=== PATIENT | female | born 1995 ===

== ENCOUNTER 2021-08-02 01:11 | Inpatient (IN) | payer BC ==
[2021-08-02] MEDS ORDERED: Tranexamic Acid 1,000 MG in Sodium Chloride 0.9% 100 ML IV PRN (01:46)
[2021-08-02] MEDS ORDERED: Carboprost Tromethamine 250 MCG/1 ML Amp IM PRN (01:46)
[2021-08-02] MEDS ORDERED: Nalbuphine 10 MG/1 ML Vial IVPUSH PRN (01:46)
[2021-08-02] MEDS ORDERED: Terbutaline 1 MG/ML SDV SUBCUT PRN (01:46)
[2021-08-02] MEDS ORDERED: Misoprostol 200 MCG Tab PO PRN (01:46)
[2021-08-02] MEDS ORDERED: Lidocaine 1% 50 ML MDV INJECT PRN (01:46)
[2021-08-02] MEDS ORDERED: Misoprostol 25 MCG (1/4 of 100 MCG) Tab VAG PRN ×2 (01:46)
[2021-08-02] MEDS ORDERED: Butorphanol 1 MG/ML SDV IVPUSH PRN (01:46)
[2021-08-02] MEDS ORDERED: Sodium Chloride 0.9% 10 ML Syringe FLUSH PRN (01:46)
[2021-08-02] MEDS ORDERED: Water For Irrigation,Sterile 1,000 ML Container IRR PRN (01:46)
[2021-08-02] MEDS ORDERED: Sodium Chloride 0.9% 10 ML SDV IV PRN (01:46)
[2021-08-02] MEDS ORDERED: Methylergonovine 0.2 MG/1 ML Amp IM PRN (01:46)
[2021-08-02] MEDS ORDERED: Sodium Chloride 0.9% 2.5 ML Syringe FLUSH PRN (01:46)
[2021-08-02] MEDS ORDERED: Ondansetron 4 MG/2 ML SDV IVPUSH PRN (01:55)
[2021-08-02] MEDS ORDERED: Oxytocin/0.9 % Sodium Chloride 30 UNIT/500 ML BAG IV SCH ×2 (02:00)
[2021-08-02] MEDS: Lactated Ringers 1,000 ML IV SCH ×3 (10:08→17:54)
[2021-08-02] MEDS ORDERED: Ropivacaine HCl/PF 200 ML ONE (11:37)
--- NOTE | 2021-08-02 13:28 | PCM.PREANE ---
Preanesthetic Assessment - Procedure Proposed Procedure: Labor Epidural - Anesthesia/Transfusion/Family Hx Anesthesia History: Prior Anesthesia Without Reaction Type of Anesthesia Reaction: Other (see below) (PONV) Family History of Anesthesia Reaction: No Transfusion History: No Prior Transfusion(s) Other Type of Transfusion Reaction: vomitting - Review of Systems General: No Symptoms Pulmonary: No Symptoms Cardiovascular: No Symptoms Gastrointestinal: No Symptoms Neurological: No Symptoms Other: Reports: None - Physical Assessment NPO Status Date: 08/02/21 NPO Status Time: 00:00 Vital Signs: Last Vital Signs Temp 36.4 C 08/02/21 05:50 Pulse 98 08/02/21 05:50 Resp 17 08/02/21 05:50 BP 121/77 08/02/21 05:50 Pulse Ox 98 08/02/21 05:50 Height: 1.77 m Weight: 96.729 kg ASA Class: 2 Mental Status: Alert & Oriented x3 Airway Class: Mallampati = 2 Dentition: Reports: Normal Dentition Thyro-Mental Finger Breadths: 3 Mouth Opening Finger Breadths: 3 ROM/Head Extension: Full Lungs: Clear to Auscultation, Normal Respiratory Effort Cardiovascular: Regular Rate, Regular Rhythm - Lab Values: Laboratory Last Values WBC 9.28 K/uL (4.0-11.0) 08/02/21 01:35 RBC 3.15 M/uL (4.30-5.90) L 08/02/21 01:35 Hgb 9.9 g/dL (12.0-16.0) L 08/02/21 01:35 Hct 30.5 % (36.0-46.0) L 08/02/21 01:35 MCV 96.8 fL (80.0-98.0) 08/02/21 01:35 MCH 31.4 pg (27.0-32.0) 08/02/21 01:35 MCHC 32.5 g/dL (31.0-37.0) 08/02/21 01:35 RDW Std Deviation 44.5 fl (28.0-62.0) 08/02/21 01:35 RDW Coeff of Jensen 14 % (11.0-15.0) 08/02/21 01:35 Plt Count 267 K/uL (150-400) 08/02/21 01:35 MPV 11.80 fL (7.40-12.00) 08/02/21 01:35 SARS-CoV-2 RNA (GUY) NEGATIVE (NEGATIVE) 08/02/21 01:40 Blood Type O POSITIVE 08/02/21 01:35 Antibody Screen NEGATIVE 08/02/21 01:35 - Allergies Allergies/Adverse Reactions: Allergies Allergy/AdvReac Type Severity Reaction Status Date / Time amoxicillin Allergy Hives Verified 07/10/21 17:55 Sulfa (Sulfonamide Allergy Hives Verified 07/10/21 17:56 Antibiotics) - Blood Blood Available: No Product(s) Available: None - Anesthesia Plan Pre-Op Medication Ordered: None - Acknowledgements Anesthesia Type Planned: Epidural Pt an Appropriate Candidate for the Planned Anesthesia: Yes Alternatives and Risks of Anesthesia Discussed w Pt/Guardian: Yes Pt/Guardian Understands and Agrees with Anesthesia Plan: Yes PreAnesthesia Questionnaire - Past Health History Medical/Surgical History: Denies Medical/Surgical History HEENT History: Reports: None Cardiovascular History: Reports: None Respiratory History: Reports: None Gastrointestinal History: Reports: None Genitourinary History: Reports: Other (See Below) Other Genitourinary History: kidney stones lithotripsy RECREATION PROGRAM COORDINATOR History: Reports: Endometriosis, , Other (See Below) Other OB/BYN History: ovarian cysts Musculoskeletal History: Reports: None Neurological History: Reports: None Psychiatric History: Reports: Anxiety Endocrine/Metabolic History: Reports: None Hematologic History: Reports: None Immunologic History: Reports: None Oncologic (Cancer) History: Reports: None Dermatologic History: Reports: None, Other (See Below) Other Dermatologic History: adult acne - Infectious Disease History Infectious Disease History: Reports: None - Past Surgical History Head Surgeries/Procedures: Reports: None - SUBSTANCE USE Tobacco Use Status *Q: Never Tobacco User Second Hand Smoke Exposure: No Recreational Drug Use History: No - CURRENT (IN HOUSE) MEDS Current Meds: Current Medications Butorphanol Tartrate (Butorphanol 1 Mg/Ml Sdv) 1 mg IVPUSH Q1H PRN PRN Reason: Pain (severe 7-10) Carboprost Tromethamine (Carboprost Tromethamine 250 Mcg/1 Ml Amp) 250 mcg IM ASDIRECTED PRN PRN Reason: Post Hemorrhage Oxytocin/Sodium Chloride (Oxytocin 30 Unit In Ns 0.9% 500 Ml Premix) 30 unit in 500 mls @ 999 mls/hr IV TITRATE LALAN Tranexamic Acid 1,000 mg/ (Sodium Chloride) 110 mls @ 660 mls/hr IV ONETIME PRN PRN Reason: Bleeding Oxytocin/Sodium Chloride (Oxytocin 30 Unit In Ns 0.9% 500 Ml Premix) 30 unit in 500 mls @ 2 mls/hr IV TITRATE ALLAN; Protocol Last Titration: 08/02/21 12:26 Dose: 4 munits/min, 4 mls/hr Documented by: Lactated Ringer's (Ringers, Lactated) 1,000 mls @ 150 mls/hr IV ASDIRECTED ALLAN Last Admin: 08/02/21 11:10 Dose: 150 mls/hr Documented by: Lidocaine HCl (Lidocaine 1% 50 Ml Mdv) 50 ml INJECT ONETIME PRN PRN Reason: Laceration repair Methylergonovine Maleate (Methylergonovine 0.2 Mg/1 Ml Amp) 0.2 mg IM ASDIRECTED PRN PRN Reason: Post Hemorrhage Misoprostol (Misoprostol 200 Mcg Tab) 200 mcg PO ONETIME PRN PRN Reason: Post Hemorrhage Misoprostol (Misoprostol 25 Mcg (1/4 Of 100 Mcg) Tab) 25 mcg VAG ONETIME PRN PRN Reason: Cervical Ripening Misoprostol (Misoprostol 25 Mcg (1/4 Of 100 Mcg) Tab) 25 mcg VAG Q4H PRN PRN Reason: Cervical Ripening Nalbuphine HCl (Nalbuphine 10 Mg/1 Ml Vial) 10 mg IVPUSH Q1H PRN PRN Reason: Pain (severe 7-10) Ondansetron HCl (Ondansetron 4 Mg/2 Ml Sdv) 4 mg IVPUSH Q4H PRN PRN Reason: Nausea/Vomiting Sodium Chloride (Sodium Chloride 0.9% 10 Ml Syringe) 10 ml FLUSH ASDIRECTED PRN PRN Reason: Keep Vein Open Sodium Chloride (Sodium Chloride 0.9% 2.5 Ml Syringe) 2.5 ml FLUSH ASDIRECTED PRN PRN Reason: Keep Vein Open Sodium Chloride (Sodium Chloride 0.9% 10 Ml Sdv) 10 ml IV ASDIRECTED PRN PRN Reason: IV Use Sterile Water (Water For Irrigation,Sterile 1,000 Ml Container) 1,000 ml IRR ASDIRECTED PRN PRN Reason: delivery Terbutaline Sulfate (Terbutaline 1 Mg/Ml Sdv) 0.25 mg SUBCUT ASDIRECTED PRN PRN Reason: Tacysystole Discontinued Medications Ropivacaine (Naropin 0.2%) Confirm Administered Dose 200 mls @ as directed .ROUTE .[facility] ONE Stop: 08/02/21 11:38 Last Admin: 08/02/21 12:43 Dose: Not Given Documented by:
--- NOTE | 2021-08-02 13:33 | PCM.SN.2 ---
Time Documentation - Pre-Procedure Checklist Attending Provider Aware: Yes Chart Reviewed: Yes Consent Signed: Yes Labs Reviewed: Yes VS/FHR Reviewed: Yes Patient Identification Confirmation Method: Reports: Chart Visual, Verbal Patient Pt an Appropriate Candidate for the Planned Anesthesia: Yes Alternatives and Risks of Anesthesia Discussed w Pt/Guardian: Yes - Procedure Procedure Start Date: 08/02/21 Procedure Start Time: 11:[address]: Reports: Blood Pressure, Heart Rate, SPO2 Functional IV: Yes Safety Measures: Reports: Patient Identified, Procedure Verified, Site Verified, Procedure Time Out Patient Position: Reports: Sitting Prep: Reports: Betadine x3 Local Anesthetic: Reports: Intradermal Wheal w Lidocaine 1% Regional Placement Level: Reports: L3-4 Needle: Reports: 17 g Touhy Approach: Reports: Midline Technique: Reports: LEXIS Glass Syringe LEXIS Needle Depth (cm): 6 cm Parasthesia: Reports: None Fluid Obtained: Reports: None Catheter Depth at Skin (cm): 15 cm Test Dose Time: 11:33 Test Dose Medication: Reports: Lidocaine 1.5% w Epinephrine 1:200,000 Test Dose Response: Reports: Negative Loading Dose Time: 11:43 Loading Dose Medication: 0.2% ropivicaine Loading Dose Patient Position: supine Continuous Infusion Start Time: 11:45 Continuous Infusion Medication: 0.2% ropivicaine Continuous Infusion Rate: 12 Continuous Infusion PCS Bolus Option: 4 Continuous Infusion Lockout Dose (cc/hr): 20 Patient Position Post Placement: Reports: Semi-fowlers/ESME Post-procedure Pain Level: 0 Level Achieved: t4 VS and FHR Monitored in Unit Post Placement: Yes Procedure End Date: 08/02/21 Procedure End Time: 11:45 Procedure Comment: Sterile technique used throughout.
--- NOTE | 2021-08-02 13:35 | PCM.POSTAN ---
POST ANESTHESIA ASSESSMENT - MENTAL STATUS Mental Status: Alert, Oriented - VITAL SIGNS Vital Signs: Last Vital Signs Temp 36.4 C 08/02/21 05:50 Pulse 98 08/02/21 05:50 Resp 17 08/02/21 05:50 BP 121/77 08/02/21 05:50 Pulse Ox 98 08/02/21 05:50 - RESPIRATORY Respiratory Status: Respiratory Rate WNL, Airway Patent, O2 Saturation Stable - CARDIOVASCULAR CV Status: Pulse Rate WNL, Blood Pressure Stable - GASTROINTESTINAL GI Status: No Symptoms - POST OP HYDRATION Hydration Status: Adequate & Stable (VSS and pt comfortable)
[2021-08-02] MEDS ORDERED: Ibuprofen 800 MG Tab PO PRN (22:03)
[2021-08-02] MEDS ORDERED: Bisacodyl 10 MG Supp RECTAL PRN (22:03)
[2021-08-02] MEDS ORDERED: Witch Hazel Medicated Pads 40/Jar TOP PRN (22:03)
[2021-08-02] MEDS ORDERED: Lanolin 100% Cream 7 GM Tube TOP PRN (22:03)
[2021-08-02] MEDS ORDERED: Benzocaine/Menthol 20%-0.5% Spray 78 GM Cannister TOP PRN (22:03)
[2021-08-02] MEDS ORDERED: oxyCODONE 5 MG Tab PO PRN (22:03)
[2021-08-02] MEDS ORDERED: Ibuprofen 400 MG Tab PO PRN (22:03)
[2021-08-02] MEDS ORDERED: Acetaminophen 500 MG Tab PO PRN (22:03)
--- NOTE | 2021-08-02 22:13 | PCM.DEL ---
L & D Note - General Info Date of Service: 08/02/21 Mother's Due Date: 08/23/21 - Delivery Note Labor: Augmented by Oxytocin Cervical Ripening Method: Misoprostil (x2 doses) Delivery Outcome: Livebirth Delivery Method: Spontaneous Vaginal Delivery-Single Delivery Mode: Spontaneous Presentation: Right Occiput Anterior (SYDNIE) Nuchal Cord: None Anesthesia Type: Epidural Amniotic Fluid Description: Clear Episiotomy Type: None Laceration: 2nd Degree Suture type: Vicryl Suture size: 2-0 Placenta: Intact, Spontaneous Cord: 3 Vessels Estimated Blood Loss: 150 Resuscitation Needed: No : Bulb Syringe, Stimulated, Warmed Score 1 min: 7 Score 5 min: 8 Delivery Comments (Free Text/Narrative):: Dictation #[id number] - General Info Date of Service: 08/02/21 - Patient Data Vitals - Most Recent: Last Vital Signs Temp 97.6 F 08/02/21 05:50 Pulse 98 08/02/21 05:50 Resp 17 08/02/21 05:50 BP 121/77 08/02/21 05:50 Pulse Ox 98 08/02/21 05:50 Weight - Most Recent: 213 lb 4 oz I&O - Last 24 Hours: Intake & Output 08/02/21 08/02/21 08/02/21 06:59 14:59 22:59 Intake Total 2022 Output Total 675 Balance 1348 Lab Results Last 24 Hours: Laboratory Results - last 24 hr 08/02/21 08/02/21 08/02/21 Range/Units 01:35 01:35 01:40 WBC 9.28 (4.0-11.0) K/uL RBC 3.15 L (4.30-5.90) M/uL Hgb 9.9 L (12.0-16.0) g/dL Hct 30.5 L (36.0-46.0) % MCV 96.8 (80.0-98.0) fL MCH 31.4 (27.0-32.0) pg MCHC 32.5 (31.0-37.0) g/dL RDW Std Deviation 44.5 (28.0-62.0) fl RDW Coeff of Jensen 14 (11.0-15.0) % Plt Count 267 (150-400) K/uL MPV 11.80 (7.40-12.00) fL SARS-CoV-2 RNA (GUY) NEGATIVE (NEGATIVE) Blood Type O POSITIVE Antibody Screen NEGATIVE Med Orders - Current: Current Medications Butorphanol Tartrate (Butorphanol 1 Mg/Ml Sdv) 1 mg IVPUSH Q1H PRN PRN Reason: Pain (severe 7-10) Carboprost Tromethamine (Carboprost Tromethamine 250 Mcg/1 Ml Amp) 250 mcg IM ASDIRECTED PRN PRN Reason: Post Hemorrhage Oxytocin/Sodium Chloride (Oxytocin 30 Unit In Ns 0.9% 500 Ml Premix) 30 unit in 500 mls @ 999 mls/hr IV TITRATE ALLAN Tranexamic Acid 1,000 mg/ (Sodium Chloride) 110 mls @ 660 mls/hr IV ONETIME PRN PRN Reason: Bleeding Oxytocin/Sodium Chloride (Oxytocin 30 Unit In Ns 0.9% 500 Ml Premix) 30 unit in 500 mls @ 2 mls/hr IV TITRATE ALLAN; Protocol Last Titration: 08/02/21 13:38 Dose: 6 munits/min, 6 mls/hr Documented by: Lactated Ringer's (Ringers, Lactated) 1,000 mls @ 150 mls/hr IV ASDIRECTED ALLAN Last Admin: 08/02/21 17:54 Dose: 150 mls/hr Documented by: Lidocaine HCl (Lidocaine 1% 50 Ml Mdv) 50 ml INJECT ONETIME PRN PRN Reason: Laceration repair Methylergonovine Maleate (Methylergonovine 0.2 Mg/1 Ml Amp) 0.2 mg IM ASDIRECTED PRN PRN Reason: Post Hemorrhage Misoprostol (Misoprostol 200 Mcg Tab) 200 mcg PO ONETIME PRN PRN Reason: Post Hemorrhage Misoprostol (Misoprostol 25 Mcg (1/4 Of 100 Mcg) Tab) 25 mcg VAG ONETIME PRN PRN Reason: Cervical Ripening Misoprostol (Misoprostol 25 Mcg (1/4 Of 100 Mcg) Tab) 25 mcg VAG Q4H PRN PRN Reason: Cervical Ripening Nalbuphine HCl (Nalbuphine 10 Mg/1 Ml Vial) 10 mg IVPUSH Q1H PRN PRN Reason: Pain (severe 7-10) Ondansetron HCl (Ondansetron 4 Mg/2 Ml Sdv) 4 mg IVPUSH Q4H PRN PRN Reason: Nausea/Vomiting Sodium Chloride (Sodium Chloride 0.9% 10 Ml Syringe) 10 ml FLUSH ASDIRECTED PRN PRN Reason: Keep Vein Open Sodium Chloride (Sodium Chloride 0.9% 2.5 Ml Syringe) 2.5 ml FLUSH ASDIRECTED PRN PRN Reason: Keep Vein Open Sodium Chloride (Sodium Chloride 0.9% 10 Ml Sdv) 10 ml IV ASDIRECTED PRN PRN Reason: IV Use Sterile Water (Water For Irrigation,Sterile 1,000 Ml Container) 1,000 ml IRR ASDIRECTED PRN PRN Reason: delivery Terbutaline Sulfate (Terbutaline 1 Mg/Ml Sdv) 0.25 mg SUBCUT ASDIRECTED PRN PRN Reason: Tacysystole Discontinued Medications Ropivacaine (Naropin 0.2%) Confirm Administered Dose 200 mls @ as directed .ROUTE .[facility]-MED ONE Stop: 08/02/21 11:38 Last Admin: 08/02/21 12:43 Dose: Not Given Documented by: - Exam Urinary Catheter Total Time: 0Days 1Hours - Problem List Review Problem List Initiated/Reviewed/Updated: Yes - My Orders Last 24 Hours: My Active Orders 08/02/21 01:35 RPR (SYPHILIS SERO) W/ RFLX [REF] Stat 08/02/21 01:46 Butorphanol [Stadol] 1 mg IVPUSH Q1H PRN Carboprost Tromethamine [Hemabate DS] 250 mcg IM ASDIRECTED PRN Lidocaine 1% [Xylocaine 1%] 50 ml INJECT ONETIME PRN Methylergonovine [Methergine] 0.2 mg IM ASDIRECTED PRN Nalbuphine [Nubain] 10 mg IVPUSH Q1H PRN Sodium Chloride 0.9% [Normal Saline] 10 ml IV ASDIRECTED PRN Sodium Chloride 0.9% [Saline Flush] 10 ml FLUSH ASDIRECTED PRN Sodium Chloride 0.9% [Saline Flush] 2.5 ml FLUSH ASDIRECTED PRN Terbutaline [Brethine] 0.25 mg SUBCUT ASDIRECTED PRN Tranexamic Acid [Cyklokapron] 1,000 mg Sodium Chloride 0.9% [Normal Saline] 100 ml IV ONETIME Water For Irrigation,Sterile [Sterile Water for Irrigation] 1,000 ml IRR ASDIRECTED PRN miSOPROStoL [Cytotec] 200 mcg PO ONETIME PRN miSOPROStoL [Cytotec] 25 mcg VAG ONETIME PRN miSOPROStoL [Cytotec] 25 mcg VAG Q4H PRN Resuscitation Status Routine 08/02/21 01:47 Patient Status [ADT] Routine Bedrest Bathroom Privileges [RC] ASDIRECTED Communication Order [RC] ASDIRECTED Communication Order [RC] ASDIRECTED Communication Order [RC] ASDIRECTED May Shower [RC] ASDIRECTED Notify Provider [RC] PRN Notify Provider [RC] PRN Notify Provider [RC] PRN Notify Provider [RC] STAT Oxygen Therapy [RC] ASDIRECTED Up ad Caron [RC] ASDIRECTED Vital Signs [RC] PER UNIT ROUTINE Vital Signs [RC] PER UNIT ROUTINE Scalp Electrode [WOMSER] Per Unit Routine Peripheral IV Insertion Adult [OM.PC] Routine 08/02/21 01:55 Ondansetron [Zofran] 4 mg IVPUSH Q4H PRN 08/02/21 02:00 Lactated Ringers [Ringers, Lactated] 1,000 ml IV ASDIRECTED Oxytocin/0.9 % Sodium Chloride [Oxytocin 30 Unit in NS 0.9% 500 ML Premix] 30 unit in 500 ml IV TITRATE Oxytocin/0.9 % Sodium Chloride [Oxytocin 30 Unit in NS 0.9% 500 ML Premix] 30 unit in 500 ml IV TITRATE Medication Administration Instruction [OM.PC] Q3H 08/02/21 22:03 Patient Status [ADT] Routine May Shower [RC] ASDIRECTED Up ad Caron [RC] ASDIRECTED Vital Signs [RC] PER UNIT ROUTINE Acetaminophen [Tylenol Extra Strength] 1,000 mg PO Q4H PRN Acetaminophen [Tylenol Extra Strength] 500 mg PO Q4H PRN Benzocaine/Menthol [Dermoplast Pain Relief 20%-0.5% [place]] 78 gm TOP ASDIRECTED PRN Docusate Sodium [Colace] 100 mg PO Q12H PRN Ibuprofen [Motrin] 400 mg PO Q4H PRN Ibuprofen [Motrin] 800 mg PO Q6H PRN Lanolin [Lansinoh HPA] See Dose Instructions TOP ASDIRECTED PRN bisacodyL [Dulcolax] 10 mg RECTAL ONETIME PRN oxyCODONE 5 mg PO Q2H PRN aaron Camejo [Tucks] 1 pad TOP ASDIRECTED PRN Assess Lochia [WOMSER] Per Unit Routine Assess Uterine Involution [WOMSER] Per Unit Routine Peripheral IV Discontinue [OM.PC] Routine 08/03/21 05:11 HEMOGLOBIN/HEMATOCRIT,HH [HEME] Timed - Assessment Assessment:: 26 year old female with gestational hypertension s/p - Plan Plan:: Routine cares * Rh positive, rubella immune, GBS negative * Regular diet as tolerated * PO pain medications ordered PRN * Encourage ambulation and fluid intake when able * Plans to breastfeed, nursing assistance PRN Gestational hypertension * BPs normotensive to mild range throughout labor * Asymptomatic * Preeclampsia labs have been within normal limits Dispo: stable. Admit to floor and anticipate routine course
--- NOTE | 2021-08-03 00:06 | OR ---
SURGEON: TORI ORANTES MD DATE OF PROCEDURE: 08/02/2021 PREOPERATIVE DIAGNOSES: 1. Term intrauterine gestation at 37 weeks and 0 days. 2. Gestational hypertension. POSTOPERATIVE DIAGNOSES: 1. Term intrauterine gestation at 37 weeks and 0 days. 2. Gestational hypertension. PROCEDURE PERFORMED: Normal spontaneous vaginal delivery, repair of second-degree perineal laceration. PRIMARY SURGEON: Tori Orantes MD. ANESTHESIOLOGIST: Nazario Deluca CRNA. ANESTHESIA: Epidural. INDICATION FOR PROCEDURE: Patient is a 26-year-old 1, para 0, at 37 weeks and 0 days gestation with complicated by gestational hypertension. She was admitted to Labor and Delivery in [facility] of 08/02/2021, for induction of labor. She received 2 doses of vaginal Cytotec. She noted spontaneous rupture of membranes with clear fluid at approximately 0600. She received an epidural for pain management around 11 a.m. and Pitocin was started shortly thereafter. Labor progressed spontaneously. An intrauterine pressure catheter was inserted at approximately 1645 due to difficulty tracing contractions abdominally. At approximately 20:00, I was notified that the patient was completely dilated and instructed the patient to labor down as she was only at 1+ station. DESCRIPTION OF PROCEDURE: At approximately 21:00, I entered the room and patient was noted to be completely dilated and +2 station. The patient was then placed into dorsal lithotomy position and she pushed with contractions for approximately 40 minutes with good descent. head delivered in occiput anterior position, restitute ROT. Anterior shoulder delivered easily. No nuchal cord was noted. Posterior shoulder and remaining body was then delivered. The baby was placed on maternal chest and evaluated by the awaiting nursing staff. The baby was pink and crying vigorously and moving all extremities immediately after the delivery. After the cord was no longer pulsating, the cord was clamped and cut. Arterial, venous, and cord blood gases were then obtained and the placenta then was expressed without difficulty. Examination of the cervix, vaginal gomez, and perineum was then performed and a small second-degree perineal laceration was noted. This was repaired in the usual fashion with 2-0 Vicryl. Fundal massage was then performed and a small amount of vaginal bleeding was noted. The patient tolerated the procedure well. Sponge, lap, needle count were correct x2. The patient and recovering in delivery room at this time. MARORAC / MODL /[id number] AZALIA
[2021-08-03] MEDS: Acetaminophen 500 MG Tab PO PRN ×2 (06:16→16:27)
[2021-08-03] MEDS: Docusate Sodium 100 MG Cap PO PRN (08:26)
--- NOTE | 2021-08-03 08:42 | PCM.PNPP ---
- General Info Date of Service: 08/03/21 Admission Dx/Problem (Free Text): Gestational hypertension Subjective Update: Resting comfortably in bed during rounds. Has showered and ambulated about her room. Pain well controlled. Tolerating regular diet. Voiding independently. Bleeding has decreased. , using nipple shield with good results. - General Info Date of Service: 08/03/21 - Patient Data Vital Signs - Most Recent: Last Vital Signs Temp 97.5 F 08/03/21 04:00 Pulse 87 08/03/21 04:00 Resp 16 08/03/21 04:00 BP 135/87 08/03/21 04:00 Pulse Ox 95 08/03/21 04:00 Weight - Most Recent: 213 lb 4 oz I&O - Last 24 Hours: Intake & Output 08/02/21 08/03/21 08/03/21 22:59 06:59 14:59 Intake Total 2023 Output Total 675 Balance 1348 Lab Results - Last 24 Hours: Laboratory Results - last 24 hr 08/02/21 08/03/21 Range/Units 21:44 05:40 Hgb 10.4 L (12.0-16.0) g/dL Hct 32.0 L (36.0-46.0) % Cord ABG pH 7.176 L (7.18-7.38) Cord ABG Base Excess -12 L (-10--2) Cord VBG pH 7.226 L (7.25-7.45) Cord VBG Base Excess -10 (-10--2) Med Orders - Current: Current Medications Acetaminophen (Acetaminophen 500 Mg Tab) 500 mg PO Q4H PRN PRN Reason: Pain (mild 1-3) Acetaminophen (Acetaminophen 500 Mg Tab) 1,000 mg PO Q4H PRN PRN Reason: Pain (mild 1-3) Last Admin: 08/03/21 06:16 Dose: 1,000 mg Documented by: Benzocaine/Menthol (Benzocaine/Menthol 20%-0.5% [place] 78 Gm Cannister) 78 gm TOP ASDIRECTED PRN PRN Reason: Perineal Comfort Measure Last Admin: 08/03/21 00:23 Dose: 1 canister Documented by: Bisacodyl (Bisacodyl 10 Mg Supp) 10 mg RECTAL ONETIME PRN PRN Reason: Constipation Butorphanol Tartrate (Butorphanol 1 Mg/Ml Sdv) 1 mg IVPUSH Q1H PRN PRN Reason: Pain (severe 7-10) Carboprost Tromethamine (Carboprost Tromethamine 250 Mcg/1 Ml Amp) 250 mcg IM ASDIRECTED PRN PRN Reason: Post Hemorrhage Docusate Sodium (Docusate Sodium 100 Mg Cap) 100 mg PO Q12H PRN PRN Reason: Constipation Last Admin: 08/03/21 08:26 Dose: 100 mg Documented by: Emollient Ointment (Lanolin 100% Cream 7 Gm Tube) 0 gm TOP ASDIRECTED PRN PRN Reason: Sore Nipples Oxytocin/Sodium Chloride (Oxytocin 30 Unit In Ns 0.9% 500 Ml Premix) 30 unit in 500 mls @ 999 mls/hr IV TITRATE ALLAN Tranexamic Acid 1,000 mg/ (Sodium Chloride) 110 mls @ 660 mls/hr IV ONETIME PRN PRN Reason: Bleeding Oxytocin/Sodium Chloride (Oxytocin 30 Unit In Ns 0.9% 500 Ml Premix) 30 unit in 500 mls @ 2 mls/hr IV TITRATE ALLAN; Protocol Last Titration: 08/02/21 13:38 Dose: 6 munits/min, 6 mls/hr Documented by: Lactated Ringer's (Ringers, Lactated) 1,000 mls @ 150 mls/hr IV ASDIRECTED ALLAN Last Admin: 08/02/21 17:54 Dose: 150 mls/hr Documented by: Ibuprofen (Ibuprofen 400 Mg Tab) 400 mg PO Q4H PRN PRN Reason: Pain (mild 1-3) Ibuprofen (Ibuprofen 800 Mg Tab) 800 mg PO Q6H PRN PRN Reason: Cramping Last Admin: 08/03/21 06:16 Dose: 800 mg Documented by: Lidocaine HCl (Lidocaine 1% 50 Ml Mdv) 50 ml INJECT ONETIME PRN PRN Reason: Laceration repair Methylergonovine Maleate (Methylergonovine 0.2 Mg/1 Ml Amp) 0.2 mg IM ASDIRECTED PRN PRN Reason: Post Hemorrhage Misoprostol (Misoprostol 200 Mcg Tab) 200 mcg PO ONETIME PRN PRN Reason: Post Hemorrhage Misoprostol (Misoprostol 25 Mcg (1/4 Of 100 Mcg) Tab) 25 mcg VAG ONETIME PRN PRN Reason: Cervical Ripening Misoprostol (Misoprostol 25 Mcg (1/4 Of 100 Mcg) Tab) 25 mcg VAG Q4H PRN PRN Reason: Cervical Ripening Nalbuphine HCl (Nalbuphine 10 Mg/1 Ml Vial) 10 mg IVPUSH Q1H PRN PRN Reason: Pain (severe 7-10) Ondansetron HCl (Ondansetron 4 Mg/2 Ml Sdv) 4 mg IVPUSH Q4H PRN PRN Reason: Nausea/Vomiting Oxycodone HCl (Oxycodone 5 Mg Tab) 5 mg PO Q2H PRN PRN Reason: Pain (severe 7-10) Sodium Chloride (Sodium Chloride 0.9% 10 Ml Syringe) 10 ml FLUSH ASDIRECTED PRN PRN Reason: Keep Vein Open Sodium Chloride (Sodium Chloride 0.9% 2.5 Ml Syringe) 2.5 ml FLUSH ASDIRECTED PRN PRN Reason: Keep Vein Open Sodium Chloride (Sodium Chloride 0.9% 10 Ml Sdv) 10 ml IV ASDIRECTED PRN PRN Reason: IV Use Sterile Water (Water For Irrigation,Sterile 1,000 Ml Container) 1,000 ml IRR ASDIRECTED PRN PRN Reason: delivery Terbutaline Sulfate (Terbutaline 1 Mg/Ml Sdv) 0.25 mg SUBCUT ASDIRECTED PRN PRN Reason: Tacysystole Witch Nell (Witch Nell Medicated Pads 40/Jar) 1 pad TOP ASDIRECTED PRN PRN Reason: comfort care Last Admin: 08/03/21 00:22 Dose: 1 tub Documented by: Discontinued Medications Ropivacaine (Naropin 0.2%) Confirm Administered Dose 200 mls @ as directed .ROUTE .STK-MED ONE Stop: 08/02/21 11:38 Last Admin: 08/02/21 12:43 Dose: Not Given Documented by: - Interaction Disposition, : at Bedside Infant Feeding: Breastfed Infant; Nursed Well Support Person: Significant Other - Recovery Exam Fundal Tone: Firm Fundal Level: 1 Fingerbreadths Above Umbilicus Fundal Placement: Midline Lochia Amount: Scant Lochia Color: Rubra/Red Perineum Description: Intact, Minimal Bruising/Swelling Episiotomy/Laceration: None Bladder Status: Voiding Urinary Elimination: Voided - Exam General: Alert Lungs: Normal Respiratory Effort Cardiovascular: Regular Rate GI/Abdominal Exam: Soft, Non-Tender, No Distention Extremities: Normal Range of Motion, Non-Tender, Pedal Edema (trace) Skin: Warm, Dry, Intact Neurological: No New Focal Deficit Psy/Mental Status: Normal Mood - Problem List Review Problem List Initiated/Reviewed/Updated: Yes - My Orders Last 24 Hours: My Active Orders 08/02/21 22:03 Patient Status [ADT] Routine May Shower [RC] ASDIRECTED Up ad Caron [RC] ASDIRECTED Vital Signs [RC] PER UNIT ROUTINE Acetaminophen [Tylenol Extra Strength] 1,000 mg PO Q4H PRN Acetaminophen [Tylenol Extra Strength] 500 mg PO Q4H PRN Benzocaine/Menthol [Dermoplast Pain Relief 20%-0.5% [place]] 78 gm TOP ASDIRECTED PRN Docusate Sodium [Colace] 100 mg PO Q12H PRN Ibuprofen [Motrin] 400 mg PO Q4H PRN Ibuprofen [Motrin] 800 mg PO Q6H PRN Lanolin [Lansinoh HPA] See Dose Instructions TOP ASDIRECTED PRN bisacodyL [Dulcolax] 10 mg RECTAL ONETIME PRN oxyCODONE 5 mg PO Q2H PRN witch Nell [Tucks] 1 pad TOP ASDIRECTED PRN Assess Lochia [WOMSER] Per Unit Routine Assess Uterine Involution [WOMSER] Per Unit Routine Peripheral IV Discontinue [OM.PC] Routine - Assessment Assessment:: 26 year old female with gestational hypertension s/p - Plan Plan:: Routine cares * Rh positive, rubella immune, GBS negative * Regular diet as tolerated * PO pain medications ordered PRN * Encourage ambulation and fluid intake * , nursing assistance PRN Gestational hypertension * BPs normotensive since delivery * Asymptomatic * Preeclampsia labs have been within normal limits Dispo: stable. Anticipate discharge tomorrow due to late night delivery. Continue cares today.
--- NOTE | 2021-08-03 15:06 | PCM48HPAN ---
Post Anesthesia Note - EVALUATION WITHIN 48HRS OF ANESTHETIC Vital Signs in Normal Range: Yes Patient Participated in Evaluation: Yes Respiratory Function Stable: Yes Airway Patent: Yes Cardiovascular Function Stable: Yes Hydration Status Stable: Yes Pain Control Satisfactory: Yes Nausea and Vomiting Control Satisfactory: Yes Mental Status Recovered: Yes Vital Signs: Last Vital Signs Temp 36.6 C 08/03/21 08:00 Pulse 80 08/03/21 08:00 Resp 16 08/03/21 08:00 BP 134/79 08/03/21 08:00 Pulse Ox 96 08/03/21 08:00 - COMMENTS/OBSERVATIONS Free Text/Narrative:: pt states to be up walking with no Signs/symptoms of infection.
--- NOTE | 2021-08-04 08:39 | PCM.PNPP ---
- General Info Date of Service: 08/04/21 Admission Dx/Problem (Free Text): Gestational hypertension Subjective Update: Resting comfortably in bed during rounds. Ambulating and voiding without difficulty. Pain well controlled. Tolerating regular diet. Bleeding has decreased. , using nipple shield with good results. Pumping for baby in nursery this morning due to elevated bilirubin levels. - General Info Date of Service: 08/04/21 - Patient Data Vital Signs - Most Recent: Last Vital Signs Temp 97.8 F 08/04/21 08:00 Pulse 80 08/04/21 08:00 Resp 18 08/04/21 08:00 BP 142/82 H 08/04/21 08:00 Pulse Ox 98 08/04/21 08:00 Weight - Most Recent: 213 lb 4 oz Med Orders - Current: Current Medications Acetaminophen (Acetaminophen 500 Mg Tab) 500 mg PO Q4H PRN PRN Reason: Pain (mild 1-3) Acetaminophen (Acetaminophen 500 Mg Tab) 1,000 mg PO Q4H PRN PRN Reason: Pain (mild 1-3) Last Admin: 08/03/21 16:27 Dose: 1,000 mg Documented by: Benzocaine/Menthol (Benzocaine/Menthol 20%-0.5% [place] 78 Gm Cannister) 78 gm TOP ASDIRECTED PRN PRN Reason: Perineal Comfort Measure Last Admin: 08/03/21 00:23 Dose: 1 canister Documented by: Bisacodyl (Bisacodyl 10 Mg Supp) 10 mg RECTAL ONETIME PRN PRN Reason: Constipation Butorphanol Tartrate (Butorphanol 1 Mg/Ml Sdv) 1 mg IVPUSH Q1H PRN PRN Reason: Pain (severe 7-10) Carboprost Tromethamine (Carboprost Tromethamine 250 Mcg/1 Ml Amp) 250 mcg IM ASDIRECTED PRN PRN Reason: Post Hemorrhage Docusate Sodium (Docusate Sodium 100 Mg Cap) 100 mg PO Q12H PRN PRN Reason: Constipation Last Admin: 08/03/21 08:26 Dose: 100 mg Documented by: Emollient Ointment (Lanolin 100% Cream 7 Gm Tube) 0 gm TOP ASDIRECTED PRN PRN Reason: Sore Nipples Oxytocin/Sodium Chloride (Oxytocin 30 Unit In Ns 0.9% 500 Ml Premix) 30 unit in 500 mls @ 999 mls/hr IV TITRATE ALLAN Tranexamic Acid 1,000 mg/ (Sodium Chloride) 110 mls @ 660 mls/hr IV ONETIME PRN PRN Reason: Bleeding Oxytocin/Sodium Chloride (Oxytocin 30 Unit In Ns 0.9% 500 Ml Premix) 30 unit in 500 mls @ 2 mls/hr IV TITRATE ALLAN; Protocol Last Titration: 08/02/21 13:38 Dose: 6 munits/min, 6 mls/hr Documented by: Lactated Ringer's (Ringers, Lactated) 1,000 mls @ 150 mls/hr IV ASDIRECTED ALLAN Last Admin: 08/02/21 17:54 Dose: 150 mls/hr Documented by: Ibuprofen (Ibuprofen 400 Mg Tab) 400 mg PO Q4H PRN PRN Reason: Pain (mild 1-3) Ibuprofen (Ibuprofen 800 Mg Tab) 800 mg PO Q6H PRN PRN Reason: Cramping Last Admin: 08/03/21 06:16 Dose: 800 mg Documented by: Lidocaine HCl (Lidocaine 1% 50 Ml Mdv) 50 ml INJECT ONETIME PRN PRN Reason: Laceration repair Methylergonovine Maleate (Methylergonovine 0.2 Mg/1 Ml Amp) 0.2 mg IM ASDIRECTED PRN PRN Reason: Post Hemorrhage Misoprostol (Misoprostol 200 Mcg Tab) 200 mcg PO ONETIME PRN PRN Reason: Post Hemorrhage Misoprostol (Misoprostol 25 Mcg (1/4 Of 100 Mcg) Tab) 25 mcg VAG ONETIME PRN PRN Reason: Cervical Ripening Misoprostol (Misoprostol 25 Mcg (1/4 Of 100 Mcg) Tab) 25 mcg VAG Q4H PRN PRN Reason: Cervical Ripening Nalbuphine HCl (Nalbuphine 10 Mg/1 Ml Vial) 10 mg IVPUSH Q1H PRN PRN Reason: Pain (severe 7-10) Ondansetron HCl (Ondansetron 4 Mg/2 Ml Sdv) 4 mg IVPUSH Q4H PRN PRN Reason: Nausea/Vomiting Oxycodone HCl (Oxycodone 5 Mg Tab) 5 mg PO Q2H PRN PRN Reason: Pain (severe 7-10) Sodium Chloride (Sodium Chloride 0.9% 10 Ml Syringe) 10 ml FLUSH ASDIRECTED PRN PRN Reason: Keep Vein Open Sodium Chloride (Sodium Chloride 0.9% 2.5 Ml Syringe) 2.5 ml FLUSH ASDIRECTED PRN PRN Reason: Keep Vein Open Sodium Chloride (Sodium Chloride 0.9% 10 Ml Sdv) 10 ml IV ASDIRECTED PRN PRN Reason: IV Use Sterile Water (Water For Irrigation,Sterile 1,000 Ml Container) 1,000 ml IRR ASDIRECTED PRN PRN Reason: delivery Terbutaline Sulfate (Terbutaline 1 Mg/Ml Sdv) 0.25 mg SUBCUT ASDIRECTED PRN PRN Reason: Tacysystole Witch Eugenia (Witch Eugenia Medicated Pads 40/Jar) 1 pad TOP ASDIRECTED PRN PRN Reason: comfort care Last Admin: 08/03/21 00:22 Dose: 1 tub Documented by: Discontinued Medications Ropivacaine (Naropin 0.2%) Confirm Administered Dose 200 mls @ as directed .ROUTE .STK-MED ONE Stop: 08/02/21 11:38 Last Admin: 08/02/21 12:43 Dose: Not Given Documented by: - Interaction Infant Disposition, : Bro[place] to Nursery Feeding: Breastfed Infant; Nursed Well Support Person: Significant Other - Recovery Exam Fundal Tone: Firm Fundal Level: 2 Fingerbreadths Below Umbilicus Fundal Placement: Midline Lochia Amount: Scant Lochia Color: Rubra/Red Perineum Description: Intact, Minimal Bruising/Swelling Episiotomy/Laceration: None Bladder Status: Voiding Urinary Elimination: Voided - Exam General: Alert Lungs: Normal Respiratory Effort Cardiovascular: Regular Rate GI/Abdominal Exam: Soft, Non-Tender Extremities: Normal Range of Motion, Non-Tender, Pedal Edema (trace) Skin: Warm, Dry, Intact Neurological: No New Focal Deficit Psy/Mental Status: Normal Mood - Problem List Review Problem List Initiated/Reviewed/Updated: Yes - Assessment Assessment:: 26 year old female with gestational hypertension PPD2 s/p - Plan Plan:: Routine cares * Rh positive, rubella immune, GBS negative * Regular diet as tolerated * PO pain medications ordered PRN * Encourage ambulation and fluid intake * , nursing assistance PRN Gestational hypertension * BPs normotensive to mild range overnight * Asymptomatic * Preeclampsia labs have been within normal limits Dispo: stable. Anticipate discharge today pending maternal/ status. Reviewed discharge instructions. Patient to return to clinic in 4 weeks for visit.
[2021-08-04] MEDS: Docusate Sodium 100 MG Cap PO PRN (10:12)
== END 2021-08-04 14:45 | disposition home or self-care (01) | DRG 560 ==
LOC: MW.OBCHECK 01:11 → MW.OB 01:13 → MW.OBCHECK 01:47 → OBSVTOIN 21:44 → MW.OB 08-03 01:53
PROVIDERS: ADMIT Obstetrics & Gynecology; ATTEND Obstetrics & Gynecology
PROC: 10907ZC Drainage of Amniotic Fluid, Therapeutic from Products of Conception, Via Natural or Artificial Opening (ICD-10-PCS; principal; 2021-08-02)
PROC: 10E0XZZ Delivery of Products of Conception, External Approach (ICD-10-PCS; 2021-08-02)
PROC: 3E0P7VZ Introduction of Hormone into Female Reproductive, Via Natural or Artificial Opening (ICD-10-PCS; 2021-08-02)
PROC: 0KQM0ZZ Repair Perineum Muscle, Open Approach (ICD-10-PCS; 2021-08-02)
PROC: 10H07YZ Insertion of Other Device into Products of Conception, Via Natural or Artificial Opening (ICD-10-PCS; 2021-08-02)
PROC: 4A1HXCZ Monitoring of Products of Conception, Cardiac Rate, External Approach (ICD-10-PCS; 2021-08-02)
PROC: 3E0R3BZ Introduction of Anesthetic Agent into Spinal Canal, Percutaneous Approach (ICD-10-PCS; 2021-08-02)
PROC: 00HU33Z Insertion of Infusion Device into Spinal Canal, Percutaneous Approach (ICD-10-PCS; 2021-08-02)
DX: O13.4 Gestational [pregnancy-induced] hypertension without significant proteinuria, complicating childbirth (principal); Z3A.37 37 weeks gestation of pregnancy; Z37.0 Single live birth; O70.1 Second degree perineal laceration during delivery; Z20.822 Contact with and (suspected) exposure to COVID-19
CPT/HCPCS: 36415; 51702; 59025; 59409; 82803; 85014; 85018; 85027; 86592; 86850; 86900; 86901; A9270-GY; J2590; J2795; J7120; U0002

== ENCOUNTER 2023-09-25 02:00 | Inpatient (IN) | payer BC ==
[2023-09-25 15:18] LABS: HEMATOCRIT 32.8 % (37.0-47.0); HEMOGLOBIN 11.4 g/dL (12.0-16.0); MEAN CORPUSCULAR HEMOGLOBIN 33.9 pg (28.0-32.0); MEAN CORPUSCULAR HGB CONC 34.8 g/dL (32.0-36.0); MEAN CORPUSCULAR VOLUME 97.6 fL (83.0-99.0); MEAN PLATELET VOLUME 11.4 fL (9.4-12.3); PLATELET COUNT,PLT 202 K/uL (150-400); RED BLOOD CELL COUNT 3.36 M/uL (4.10-5.30); WHITE BLOOD CELL COUNT,WBC 10.68 K/uL (3.9-11.3)
[2023-09-25 15:41] LABS: A/G RATIO 0.7 (0.9-1.6); ALBUMIN 2.8 g/dL (3.4-5.0); BILIRUBIN TOTAL 0.2 mg/dL (0.2-1.0); CALCIUM 9.1 mg/dL (8.5-10.1); CARBON DIOXIDE,CO2 22.2 mmol/L (21.0-32.0); CREATININE 0.6 mg/dL (0.6-1.0); EST CRCL DRUG DOSING (CG) 148.49 mL/min; POTASSIUM,K 3.6 mmol/L (3.5-5.1); PROTEIN TOTAL,TP 6.9 g/dL (6.4-8.2); URIC ACID 3.1 mg/dL (2.6-7.2)
[2023-09-25] MEDS ORDERED: Sodium Chloride 0.9% 10 ML Syringe FLUSH PRN (16:19)
[2023-09-25] MEDS ORDERED: Nalbuphine 10 MG/0.5 ML Syringe IVPUSH PRN (16:19)
[2023-09-25] MEDS ORDERED: Sodium Chloride 0.9% 20 ML SDV IV PRN (16:19)
[2023-09-25] MEDS ORDERED: Misoprostol 200 MCG Tab PO PRN (16:19)
[2023-09-25] MEDS ORDERED: Water For Irrigation,Sterile 1,000 ML Container IRR PRN (16:19)
[2023-09-25] MEDS ORDERED: Methylergonovine 0.2 MG/1 ML Amp IM PRN (16:19)
[2023-09-25] MEDS ORDERED: Ondansetron 4 MG/2 ML SDV IVPUSH PRN (16:19)
[2023-09-25] MEDS ORDERED: Sodium Chloride 0.9% 2.5 ML Syringe FLUSH PRN (16:19)
[2023-09-25] MEDS ORDERED: Lidocaine 1% 50 ML MDV INJECT PRN (16:19)
[2023-09-25] MEDS ORDERED: Carboprost Tromethamine 250 MCG/1 mL Vial IM PRN (16:19)
[2023-09-25] MEDS ORDERED: Terbutaline 1 MG/ML SDV SUBCUT PRN (16:19)
[2023-09-25] MEDS ORDERED: Tranexamic Acid IN NACL,ISO-OS 1,000 MG in Premix Bag 1 BAG IV PRN ×2 (16:19)
[2023-09-25] MEDS ORDERED: Labetalol 100 MG/20 ML MDV IVPUSH ONE (16:26)
[2023-09-25] MEDS ORDERED: Oxytocin/0.9 % Sodium Chloride 30 UNIT/500 ML BAG IV SCH ×2 (16:30)
[2023-09-25] MEDS ORDERED: Phenylephrine HCl 0.5 MG/5 ML AMP IVPUSH PRN (16:44)
[2023-09-25] MEDS ORDERED: ePHEDrine 50 MG/ML SDV IVPUSH PRN ×2 (16:44)
[2023-09-25] MEDS ORDERED: Ropivacaine HCl/PF 400 MG in Premix Bag 1 BAG EPIDUR SCH (16:45)
[2023-09-25] MEDS: Lactated Ringers 1,000 ML IV SCH (16:56)
[2023-09-25 17:19] LABS: HEMATOCRIT 32.3 % (37.0-47.0); HEMOGLOBIN 11.5 g/dL (12.0-16.0); MEAN CORPUSCULAR HEMOGLOBIN 34.3 pg (28.0-32.0); MEAN CORPUSCULAR HGB CONC 35.6 g/dL (32.0-36.0); MEAN CORPUSCULAR VOLUME 96.4 fL (83.0-99.0); MEAN PLATELET VOLUME 11.2 fL (9.4-12.3); PLATELET COUNT,PLT 198 K/uL (150-400); RED BLOOD CELL COUNT 3.35 M/uL (4.10-5.30); WHITE BLOOD CELL COUNT,WBC 11.93 K/uL (3.9-11.3)
[2023-09-25] MEDS: Misoprostol 25 MCG (1/4 of 100 MCG) Tab VAG PRN ×2 (17:25→21:27)
[2023-09-26] MEDS: Lactated Ringers 1,000 ML IV SCH ×2 (06:36→09:33)
[2023-09-26] MEDS ORDERED: dexmedeTOMIDine HCl 200 MCG/2 ML SDV ONE (09:30)
[2023-09-26] MEDS ORDERED: Ibuprofen 800 MG Tab PO PRN (12:44)
[2023-09-26] MEDS ORDERED: Docusate Sodium 100 MG Cap PO PRN (12:44)
[2023-09-26] MEDS ORDERED: Bisacodyl 10 MG Supp RECTAL PRN (12:44)
[2023-09-26] MEDS ORDERED: Witch Hazel Medicated Pads 40/Jar TOP PRN (12:44)
[2023-09-26] MEDS ORDERED: Lanolin 100% Cream 7 GM Tube TOP PRN (12:44)
[2023-09-26] MEDS ORDERED: Benzocaine/Menthol 20%-0.5% Spray 78 GM Cannister TOP PRN (12:44)
[2023-09-26 13:18] LABS: PH,UMBILICAL ARTERIAL 7.226 (7.18-7.38); PH,UMBILICAL VENOUS 7.249 (7.25-7.45)
[2023-09-26] MEDS: Acetaminophen 500 MG Tab PO PRN (17:41)
[2023-09-27] MEDS: Acetaminophen 500 MG Tab PO PRN (00:55)
[2023-09-27 09:06] LABS: A/G RATIO 0.8 (0.9-1.6); ALBUMIN 2.6 g/dL (3.4-5.0); BILIRUBIN TOTAL 0.2 mg/dL (0.2-1.0); CALCIUM 8.7 mg/dL (8.5-10.1); CARBON DIOXIDE,CO2 21.1 mmol/L (21.0-32.0); CREATININE 0.7 mg/dL (0.6-1.0); EST CRCL DRUG DOSING (CG) 127.28 mL/min; POTASSIUM,K 4.4 mmol/L (3.5-5.1); PROTEIN TOTAL,TP 5.9 g/dL (6.4-8.2)
[2023-09-27 09:24] LABS: HEMATOCRIT 33.8 % (37.0-47.0); HEMOGLOBIN 11.8 g/dL (12.0-16.0); MEAN CORPUSCULAR HEMOGLOBIN 34.2 pg (28.0-32.0); MEAN CORPUSCULAR HGB CONC 34.9 g/dL (32.0-36.0); MEAN PLATELET VOLUME 11.8 fL (9.4-12.3); PLATELET COUNT,PLT 234 K/uL (150-400); RED BLOOD CELL COUNT 3.45 M/uL (4.10-5.30); WHITE BLOOD CELL COUNT,WBC 10.96 K/uL (3.9-11.3)
[2023-09-27] MEDS ORDERED: Labetalol 100 MG Tab PO SCH (11:16)
== END 2023-09-27 15:05 | disposition home or self-care (01) | DRG 560 ==
LOC: MW.OBCHECK 02:00 → MW.OB 02:00 → MW.OBCHECK 16:18 → MERGE 16:19 → MW.OB 16:19 → OBSVTOIN 09-26 12:44 → MW.OB 09-26 16:05
PROVIDERS: ADMIT Obstetrics & Gynecology; ATTEND Obstetrics & Gynecology
PROC: 10E0XZZ Delivery of Products of Conception, External Approach (ICD-10-PCS; principal; 2023-09-26)
PROC: 10907ZC Drainage of Amniotic Fluid, Therapeutic from Products of Conception, Via Natural or Artificial Opening (ICD-10-PCS; 2023-09-26)
PROC: 0U7C7ZZ Dilation of Cervix, Via Natural or Artificial Opening (ICD-10-PCS; 2023-09-26)
PROC: 0KQM0ZZ Repair Perineum Muscle, Open Approach (ICD-10-PCS; 2023-09-26)
PROC: 3E033VJ Introduction of Other Hormone into Peripheral Vein, Percutaneous Approach (ICD-10-PCS; 2023-09-26)
PROC: 3E0DXGC Introduction of Other Therapeutic Substance into Mouth and Pharynx, External Approach (ICD-10-PCS; 2023-09-26)
PROC: 4A1HX4Z Monitoring of Products of Conception, Cardiac Electrical Activity, External Approach (ICD-10-PCS; 2023-09-26)
DX: O13.4 Gestational [pregnancy-induced] hypertension without significant proteinuria, complicating childbirth (principal); Z3A.37 37 weeks gestation of pregnancy; Z37.0 Single live birth; Z79.82 Long term (current) use of aspirin
CPT/HCPCS: 01967; 36415; 51702; 59025; 59409; 80053; 82803; 83615; 84550; 85027; 86592; 86850; 86900; 86901; 86902; 86920; 86921; 86922; A9270-GY; J1920; J2405; J2590; J2795; J3490; J7120

== ENCOUNTER 2024-12-15 23:17 | Emergency (ER) | payer BC, OTHER ==
[2024-12-15] MEDS ORDERED: Sodium Chloride 0.9% 2.5 ML Syringe FLUSH PRN (23:48)
[2024-12-15] MEDS ORDERED: Sodium Chloride 0.9% 10 ML Syringe FLUSH PRN (23:48)
[2024-12-15] MEDS: Ketorolac 30 MG/ML SDV IVPUSH ONE (23:53)
[2024-12-15] MEDS: Sodium Chloride 0.9% 1,000 ML IV ONE (23:53)
[2024-12-15] MEDS: Alum Hydrox/Mag Hydrox/Simeth 15 ML, Lidocaine 2% 5 ML PO ONE (23:53)
[2024-12-15 23:54] LABS: BASOPHILS ABSOLUTE AUTO 0.03 K/uL (0.00-0.20); BASOPHILS PERCENT AUTO 0.4 % (0.0-1.0); EOSINOPHILS ABSOLUTE AUTO 0.06 K/uL (0.00-0.45); EOSINOPHILS PERCENT AUTO 0.8 % (0.0-6.0); HEMATOCRIT 34.1 % (37.0-47.0); HEMOGLOBIN 11.9 g/dL (12.0-16.0); IMMATURE GRAN ABSOLUTE AUTO 0.03 K/uL (0.00-0.05); IMMATURE GRAN PERCENT AUTO 0.4 % (0.0-0.4); LYMPHOCYTES PERCENT AUTO 13.4 % (24.0-44.0); MEAN CORPUSCULAR HGB CONC 34.9 g/dL (32.0-36.0); MEAN CORPUSCULAR VOLUME 88.8 fL (83.0-99.0); MEAN PLATELET VOLUME 10.4 fL (9.4-12.3); MONOCYTES PERCENT AUTO 2.7 % (0.0-8.0); NEUTROPHILS ABSOLUTE AUTO 6.15 K/uL (1.80-7.70); NEUTROPHILS PERCENT AUTO 82.3 % (41.0-71.0); PLATELET COUNT,PLT 257 K/uL (150-400); RED BLOOD CELL COUNT 3.84 M/uL (4.10-5.30); WHITE BLOOD CELL COUNT,WBC 7.47 K/uL (3.9-11.3)
[2024-12-15] MEDS: Ondansetron 4 MG/2 ML SDV IVPUSH ONE (23:54)
[2024-12-16 00:08] LABS: A/G RATIO 1.2 (0.9-1.6); ALANINE AMINOTRANSFERASE,ALT 41 IU/L (14-63); ALBUMIN 3.9 g/dL (3.4-5.0); ALKALINE PHOSPHATASE 66 U/L (46-116); ASPARTATE AMNIOTRANSFERASE,AST 53 IU/L (15-37); BILIRUBIN TOTAL 0.5 mg/dL (0.2-1.0); BLOOD UREA NITROGEN,BUN 9 mg/dL (7.0-18.0); CALCIUM 9.3 mg/dL (8.5-10.1); CARBON DIOXIDE,CO2 24.7 mmol/L (21.0-32.0); CHLORIDE,CL 102 mmol/L (98-107); CREATININE 1.1 mg/dL (0.6-1.0); GLUCOSE RANDOM 135 mg/dL (74-106); MAGNESIUM 1.3 mg/dL (1.8-2.4); POTASSIUM,K 3.1 mmol/L (3.5-5.1); PROTEIN TOTAL,TP 7.2 g/dL (6.4-8.2); SODIUM,NA 140 mmol/L (136-145)
[2024-12-16 00:11] LABS: ESTIMATED GFR 71 mL/min (>60)
[2024-12-16] MEDS: Hyoscyamine 0.125 MG Tab.SL SL ONE (00:18)
[2024-12-16 00:40] LABS: APPEARANCE,URINE CLEAR; BILIRUBIN,URINE NEGATIVE (NEGATIVE); COLOR,URINE YELLOW; GLUCOSE,URINE NEGATIVE (NEGATIVE); KETONES,URINE 40 mg/dL (NEGATIVE); LEUKOCYTE ESTERASE,URINE NEGATIVE (NEGATIVE); NITRITE,URINE NEGATIVE (NEGATIVE); OCCULT BLOOD,URINE SMALL (NEGATIVE); PROTEIN,URINE NEGATIVE (NEGATIVE); UROBILINOGEN,URINE 0.2 EU/dL (<2.0)
[2024-12-16 00:54] LABS: BACTERIA,URINE NOT SEEN (NEGATIVE); EPITHELIAL CELLS,URINE FEW (NONE-FEW); RBC,URINE 0-2 (0-2/HPF); WBC,URINE 0-2 (0-5/HPF)
[2024-12-16 00:55] LABS: MUCUS,URINE LIGHT (NONE-MOD)
== END 2024-12-16 01:01 | disposition home or self-care (01) ==
LOC: MW.ED 23:17
DX: K80.50 Calculus of bile duct without cholangitis or cholecystitis without obstruction (principal); K29.70 Gastritis, unspecified, without bleeding; Z75.8 Other problems related to medical facilities and other health care; Z88.0 Allergy status to penicillin; Z88.2 Allergy status to sulfonamides
CPT/HCPCS: 36415; 76705; 80053; 81001; 81025; 83735; 85025; 96361; 96374; 96375; 99284; A9270; J1885; J2405; J7030; 99283